=== PATIENT | female | born 1960 | race Caucasian/White ===

== ENCOUNTER → 2016-12-29 | Day surgery (SDC) | payer OTHER ==
[~2016-12-29] MED LIST: BUPIVACAINE HCL PF 0.5% 10 ML VIAL ONE; ISOSULFAN BLUE 50 MG/5 ML VIAL SQ ONE; KETOROLAC TROMETHAMINE 30 MG/ML (IVP) VIAL ONE; MIDAZOLAM HCL 2 MG/2 ML VIAL ONE; MORPHINE SULFATE 4 MG/ML INJ ONE; ONDANSETRON HCL 4 MG/2 ML VIAL IV PUSH ONE; PROPOFOL 200 MG/20 ML AMP IV ONE; SODIUM CHLORIDE 0.9% INJ 10 ML ONE; ceFAZolin 2 GM PREMIX 50 ML ONE; oxyCODONE/ACETAMINOPHEN 5 MG/325 MG TAB ONE
--- NOTE | 2016-12-29 20:52 | TN ---
cc: FRANCI PICKARD DATE OF SURGERY 12/29/2016 PRINCIPAL DIAGNOSIS Right breast cancer. PROCEDURE PERFORMED Right breast lumpectomy with intraoperative radiation therapy and right axillary sentinel lymph node biopsy. SURGEON Franci Pickard MD ANESTHESIA General via LMA device. INDICATION The patient is a 56-year-old female with a clinical stage I right breast cancer. She desires intraoperative radiation and now presents for the procedure. FINDINGS AT SURGERY A palpable 1.5 cm mass was identified at 11 o'clock 7 cm from the nipple. Four sentinel lymph nodes were removed. #1 was 1+ blue with a count of 1619 and #2 was not blue with a count of 124. [place] lymph nodes 3 and 4 were both 1+ blue with counts of 44 and 21. Touch prep analysis was not performed. PROCEDURE PERFORMED After informed consent was obtained and site verification was performed, the patient was brought to the radiology suite where she underwent peritumoral radionuclide injection. She was then brought to the major operating room where she underwent general anesthesia via LMA device. The right breast and arm were prepped and draped in sterile fashion. She was given a single dose of IV Ancef and sequential compression hose were placed. 2 mL of half-strength Lymphazurin were injected in the subareolar right breast and a 5-minute massage was performed. The palpable lesion was identified at 11 o'clock 7 cm from the nipple and it was approximately 5 mm from the skin. The overlying skin was anesthetized and a crescent of skin was excised in continuity with the lumpectomy specimen using sharp and electrocautery dissection circumferentially around the palpable mass. The specimen was oriented with the skin anterior, one long suture lateral, and one short suture superiorly. No additional margins were removed. The specimen was sent for permanent pathologic evaluation. The cavity extended down to the pectoralis muscle and the deep breast tissue just above the muscle was mobilized circumferentially and closed with a Prolene pursestring suture to reconfigure as a cavity around the applicator. The subcutaneous tissue was mobilized circumferentially and a 2-0 Prolene pursestring suture was placed in the subcutaneous tissue. The 4.5 cm applicator was then introduced into the cavity and ultrasound demonstrated greater than 1 cm of thickness from skin to applicator in all directions. The applicator was then placed in a sterile drape and secured to the Intrabeam device. The applicator was again placed in the lumpectomy cavity and the pursestring suture was secured. The patient then received intraoperative radiation therapy for a total of 34 minutes. Once completed, the pursestring suture was cut and the applicator was removed from the cavity. Good hemostasis was noted and the wound was closed using interrupted 3-0 Vicryl subcutaneous sutures and a 4-0 Monocryl subcuticular suture. Attention was then turned to the right axilla where an incision was created at the inferior aspect of the right axillary hairline. Sharp dissection was performed until the clavipectoral fascia was divided. The level I axilla was then entered and four sentinel lymph nodes were identified in low level I near the axillary tail. Each was circumferentially dissected free from surrounding structures using the harmonic scalpel and the nodes were tested and sent for permanent pathologic evaluation. Hemostasis was easily obtained with electrocautery. The wound was then closed using interrupted 3-0 Vicryl subcutaneous sutures and a 4-0 Monocryl subcuticular suture. Steri-Strips and sterile dressings were applied. The patient tolerated the procedure well with an estimated blood loss of 50 mL and she was extubated in the operating room and brought to the recovery room in good condition. All sponge and needle counts were correct at the conclusion of the case. MD NORBERT Oconnor/YOUSUF /5:15 PM /8:42 PM BRANDIN
== END | disposition home or self-care (01) ==
LOC: ESDC 09:21
PROVIDERS: ATTEND Surgery
DX: C50.411 Malignant neoplasm of upper-outer quadrant of right female breast (principal)
CPT/HCPCS: 00400; 01610; 19301; 38525; 38792; 77290; 77300; 77334; 77370; 77424; 88307; J0690; J1885; J2250; J2270; J2405; J3010; Q9968; 77469; 88305